=== PATIENT | male | born 1970 | race Caucasian/White ===

== ENCOUNTER 2016-05-16 12:56 | Day surgery (SDC) | payer OTHER ==
--- NOTE | 2016-05-15 13:46 | MH ---
cc: DICK MAYO M.D. DATE OF ADMISSION: 05/16/2016 REASON FOR ADMISSION Cardiac catheterization. HISTORY OF PRESENT ILLNESS The patient is a 45-year-old white male with a history of coronary artery disease and hyperlipidemia, who is now admitted for cardiac catheterization. Since last he has been having almost daily episodes of substernal chest discomfort, sometimes radiating to his arms bilaterally, occasionally associated with shortness of breath. He was evaluated in the hospital recently where cardiac enzymes were found to be negative for myocardial infarction. He was recommended close follow-up. He denies pleurisy, dizziness, syncope, near-syncope, palpitations, pedal edema, paroxysmal nocturnal dyspnea. The patient does state his symptoms are similar to his previous angina. PAST MEDICAL HISTORY 1. Hyperlipidemia. 2. Coronary artery disease, status post stent of the proximal LAD with a 2.75 mm Promus, and stent of the mid first obtuse marginal with a 2.25 mm Promus, stenting of the ostial to mid second obtuse marginal with a 2.25 mm Promus 11/18/2013. On 06/13/2015 he sustained an acute anterolateral ST elevation myocardial infarction associated with ventricular fibrillation arrest and underwent repeat stenting of the first obtuse marginal with a 2.5 mm Promus, and the LAD with a 3.0 mm Promus, and diagonal with a 2.25 mm Promus, in [place], [place]. MEDICATIONS His cardiac medications: 1. Aspirin 81 mg q. Daily. 2. Brilinta 90 mg b.i.d.. 3. Carvedilol 3.125 mg b.i.d. 4. Lipitor 40 mg q.h.s. 5. Ramipril 2.5 mg daily. ALLERGIES No known drug allergies. FAMILY HISTORY Noncontributory. SOCIAL HISTORY The patient is a current smoker. There is no history of alcohol abuse. REVIEW OF SYSTEMS As in the history of present illness, otherwise negative or noncontributory. PHYSICAL EXAMINATION VITAL SIGNS: On physical examination his blood pressure is 162/78 with a pulse of 55, respirations 15. GENERAL: In general he is a well-developed, well-nourished white male in no acute distress. HEENT/NECK: Jugular venous pressure is normal. Carotid pulses are 2+ bilaterally and without bruits. CHEST: Examination of the chest reveals clear lung hernandez. CARDIAC: On cardiac examination he has a regular rhythm and rate without S3, S4, or murmur. ABDOMEN: On abdominal examination he has a soft, nontender abdomen. Bowel sounds are present. There is no definite hepatosplenomegaly. EXTREMITIES: Examination of the extremities reveals no clubbing, cyanosis or edema. Peripheral pulses are normal throughout. IMPRESSION Recurrent, worsening angina in this 45-year-old white male with a fairly extensive history of coronary artery disease, status post numerous percutaneous coronary interventions, the last ones about one year ago. He most likely has re-stenosed one of his stents. I have recommended he undergo cardiac catheterization with possible percutaneous coronary intervention given the unstable nature of his symptoms. The risks of cardiac catheterization including but not limited to , myocardial infarction, stroke, arrhythmia, bleeding, infection and renal failure, have been outlined to the patient. He agrees to proceed. PLAN Cardiac catheterization on 05/16/2016. MD ARABELLA Herndon/FIOR /1:23 PM /1:37 PM RITA
[~2016-05-16] VITALS: Ht 172.7 cm; Wt 82.3 kg
[~2016-05-16 12:56] MED LIST: ASPI1TAB69 PO; BRIL90TA PO; CARV3.12 PO; LIPI40TA PO; RAMI1.252 PO
[2016-05-16 13:38] VITALS: BP 137/86; PULSE 61; RESP 18; TEMP 97.9; O2SAT 98
[2016-05-16] MEDS ORDERED: NS 1000P @30 MLS/HR (KVO) IV SCH (14:00)
[2016-05-16 14:16] LABS: AUTOMATED NEUTROPHIL # 5.7 TH/MM3 (1.8-7.7); BASOPHIL # 0.1 TH/MM3 (0-0.2); BASOPHIL % 0.7 % (0.0-2.0); EOSINOPHIL # 0.3 TH/MM3 (0-0.4); EOSINOPHIL % 3.1 % (0.0-4.0); HEMATOCRIT 48.3 % (39.0-51.0); HEMO FLAGS DIFF FINAL; LYMPH % 31.7 % (9.0-44.0); LYMPHOCYTE # 3.2 TH/MM3 (1.0-4.8); MEAN CELL VOLUME 87.1 FL (80.0-100.0); MEAN CORPUSCULAR HEMOGLOBIN 30.2 PG (27.0-34.0); MEAN CORPUSCULAR HGB CONC 34.7 % (32.0-36.0); MONO % 7.8 % (0.0-8.0); NEUT % 56.7 % (16.0-70.0); PLATELET COUNT 370 TH/MM3 (150-450); RED BLOOD COUNT 5.55 MIL/MM3 (4.50-5.90); RED CELL DISTRIBUTION WIDTH 13.7 % (11.6-17.2); WHITE BLOOD COUNT 10.1 TH/MM3 (4.0-11.0)
[2016-05-16] MEDS ORDERED: HEPARIN-NS/PF INJ 500 ML ONE (14:23)
[2016-05-16] MEDS ORDERED: MIDAZOLAM HCL 2 MG/2 ML VIAL ONE ×2 (14:24→15:12)
[2016-05-16 14:26] LABS: APTT (PATIENT) 27.9 SEC (24.3-30.1); INTERNATIONAL NORMALIZED RATIO 0.9 RATIO; PROTHROMBIN TIME - PATIENT 10.1 SEC (9.8-11.6)
[2016-05-16 14:36] LABS: BICARBONATE 28.4 MEQ/L (21.0-32.0); POTASSIUM 3.7 MEQ/L (3.5-5.1)
[2016-05-16] MEDS ORDERED: IOHEXOL 350 MG/ML 100 ML BTL (for Cath Lab) OTHER ONE (14:56)
[2016-05-16] MEDS ORDERED: IOHEXOL 350 MG/ML 50 ML BTL (for Cath Lab) OTHER ONE (14:56)
[2016-05-16] MEDS ORDERED: STERILE WATER FOR INJECTION 10 ML VIAL ONE (15:01)
[2016-05-16] MEDS ORDERED: BIVALIRUDIN 250 MG VIAL ONE (15:01)
[2016-05-16] MEDS ORDERED: TIROFIBAN INFUSION INJ 250 ML IV ONE (15:11)
[2016-05-16] MEDS ORDERED: HEPARIN SODIUM - IV 10,000 UNITS/10 ML VIAL ONE (15:11)
--- NOTE | 2016-05-16 16:20 | EKG ---
Date Performed: 05/16/2016 Time Performed: 13:44:32 PTAGE: 45 years EKG: Sinus rhythm Leftward axis Poor R wave progression - probable normal variant Borderline ECG NO SIGNIFICANT CHANGE FROM PRIOR ELECTROCARDIOGRAM. PREVIOUS TRACING : 05/11/2016 13.39 DOCTOR: Jun Siu Interpretating Date/Time 05/16/2016 16:19:28
[2016-05-16] MEDS ORDERED: SODIUM CHLOR 0.9% 1000 ML INJ 1,000 ML IV SCH (16:44)
[2016-05-16] MEDS ORDERED: MISC INFORMATION XX ONE (16:45)
[2016-05-16] MEDS ORDERED: LIDOCAINE HCL 1% 50 ML VIAL INFIL PRN (16:45)
[2016-05-16] MEDS ORDERED: LORazepam 2 MG/ML VIAL IV PRN (16:45)
[2016-05-16] MEDS ORDERED: TIROFIBAN INFUSION INJ 250 ML IV SCH (16:45)
[2016-05-16] MEDS ORDERED: ATROPINE SULFATE 1 MG/ML VIAL IV PRN (16:45)
[2016-05-16] MEDS ORDERED: ACETAMINOPHEN 325 MG TAB PO PRN (16:45)
[2016-05-16] MEDS ORDERED: SODIUM CHLORIDE 0.9% FLUSH 5 ML FLUSH IVF PRN (16:45)
[2016-05-16] MEDS ORDERED: SODIUM CHLOR 0.9% 250 ML INJ 250 ML IV PRN (16:45)
[2016-05-16] MEDS ORDERED: ONDANSETRON HCL 4 MG/2 ML VIAL IV PRN (16:45)
--- NOTE | 2016-05-16 16:58 | MA ---
cc: DICK MAYO M.D. DATE 05/16/2016 PROCEDURE Left heart catheterization, selective coronary angiography, left ventriculography, angioplasty and stent of the proximal LAD, angioplasty of the ostium of the second diagonal, angioplasty of the ostium of the second obtuse marginal. PROCEDURE NOTES The patient was brought to the Cardiac Catheterization Laboratory in a fasting state after having signed informed consent. The right groin was prepped and draped as per policy and anesthetized with 1% lidocaine. Arterial access was obtained via the right femoral artery and a 6 Guinean sheath placed. Coronary arteriography was performed using 6 [place] Tl left 4.0 to engage the LAD, 6 [place] Amplatz left 1.0 to engage the left circumflex, progressive right catheter for the right coronary. Left ventriculography was done using a standard 6 [place] pigtail. Percutaneous coronary intervention was done as described below. There were no apparent complications. HEMODYNAMIC DATA Left ventricle 112 with an end-diastolic pressure of 15. Aorta 112/65 with a mean of 82. There was no significant transvalvular aortic gradient on pullback of the pigtail catheter. CORONARY ARTERIOGRAPHY The left anterior descending and left circumflex have separate ostia. The left anterior descending demonstrates two probably overlapping stents in its proximal portion. The first diagonal, which appears to be a very small caliber vessel also demonstrates a stent from its ostium in the proximal portion. There is severe up to 95% restenosis of the LAD stents and diffuse up to 90% restenosis of the diagonal stent. The second diagonal has 50% ostial stenosis. The mid to distal LAD overall has mild diffuse luminal irregularities. The left circumflex is a relatively large vessel giving rise to a large first obtuse marginal and medium size second obtuse marginal. The first obtuse marginal has a stent in its mid portion and there if mild diffuse restenosis of the stent. The rest of the first obtuse marginal has mild diffuse luminal irregularities. There may be two overlapping stents encompassing the very proximal second obtuse marginal. There is severe restenosis of the proximal edge of these stents up to 90% severity. The mid to distal left circumflex appears to be angiographically normal. The right coronary artery is a small diffusely diseased vessel. There is likely up to 40% mid stenosis. LEFT VENTRICULOGRAPHY Contrast injection of the left ventricle reveals mild anterolateral hypokinesis. Ejection fraction is estimated at 50%. PERCUTANEOUS CORONARY INTERVENTION DESCRIPTION Aggrastat was given as per protocol. Adequate heparin was given during the procedure to achieve an ACT of 267 seconds. Using a 6 [place] XB 3.5 guiding catheter the ostium of the LAD was re-engaged. Using a 0.014 [place] guidewire the disease in the proximal LAD was crossed without difficulty and the tip of the wire positioned distally. Predilation was done using a 2.75 mm Euphora balloon catheter. At this point we decided to try to wire the small caliber first diagonal with a Runthrough wire. Despite several attempts we were unable to enter the ostium of this small diagonal. Stenting of the proximal LAD was then done with a 2.75 x 18 mm Resolute stent which was deployed at approximately 14 atmospheres for 30 seconds. Angiography at this point shows approximately 60% tubular stenosis just proximal to the stent. Despite multiple administrations of intracoronary nitroglycerine this lesion did not resolve so it was decided to place a 2.75 x 8 mm Resolute stent in this site. Despite administration of intracoronary nitroglycerine there also appears to be persistent up to 90% stenosis at the ostium of the second diagonal. The [place] guidewire was retracted and then placed in to the second diagonal. Multiple inflations were done at the ostium of this vessel using a 2.0 mm Euphora balloon catheter. Final angiography shows reduction of the initial proximal LAD stenosis to roughly 0% residual with no definite evidence for dissection or distal embolization. The second diagonal ostium has residual up to 60% stenosis. The guiding catheter was exchanged for a 6 [place] Amplatz left 1.0. The same P[place]ater guidewire was used to cross the disease at the ostium or near the ostium of the second obtuse marginal. Multiple inflations were done in this area using a noncompliant 2.75 mm Quantum Van Dyne balloon catheter. Final angiography shows reduction of the initial stenosis to roughly 50% residual with no evidence for dissection or distal embolization. It was decided not to place another stent at the true ostium of the second obtuse marginal as it was likely going to protrude in to the left circumflex lumen. The patient tolerated the procedures well. There were no apparent immediate complications. CONCLUSIONS 1. Separate origins of the left circumflex and LAD. 2. Status post repeat stenting of severe proximal LAD stent restenosis, status post angioplasty of the ostium of the second diagonal. 3. Status post angioplasty of severe stent restenosis near the ostium of the second obtuse marginal. 4. Low normal left ventricular systolic function with estimated ejection fraction of 50% with mild anterolateral hypokinesis. Dick Mayo MD GHRajat/KK /4:05 PM /4:15 PM MTDArvind
[2016-05-16 19:00] VITALS: BP 138/76; PULSE 58; RESP 18; TEMP 98; O2SAT 98
[2016-05-16] MEDS: MORPHINE SULFATE 4 MG/ML INJ IV PUSH PRN (20:56)
[2016-05-16] MEDS: SODIUM CHLORIDE 0.9% FLUSH 5 ML FLUSH IVF SCH (20:57)
[2016-05-16] MEDS: CARVEDILOL 3.125 MG TAB PO SCH (20:57)
[2016-05-16] MEDS ORDERED: ATORVASTATIN 40 MG TAB PO SCH (21:00)
[2016-05-16] MEDS ORDERED: TEMAZEPAM 15 MG CAP PO PRN (21:00)
[2016-05-16] MEDS ORDERED: TICAGRELOR 90 MG TAB PO SCH (21:00)
[2016-05-16 23:00] VITALS: BP 130/63; PULSE 66; PULSE 75; RESP 16; TEMP 98.2; O2SAT 98
[2016-05-17] VITALS (11 sets, daily range): BP systolic 120–134; BP diastolic 59–73; PULSE 54–92; RESP 16; TEMP 99.3–99.6; O2SAT 95–98
[2016-05-17] MEDS: MORPHINE SULFATE 4 MG/ML INJ IV PUSH PRN (03:18)
[2016-05-17 04:09] LABS: AUTOMATED NEUTROPHIL # 14.4 TH/MM3 (1.8-7.7); BASOPHIL # 0.1 TH/MM3 (0-0.2); BASOPHIL % 0.4 % (0.0-2.0); EOSINOPHIL # 0.2 TH/MM3 (0-0.4); EOSINOPHIL % 1.2 % (0.0-4.0); HEMATOCRIT 44.1 % (39.0-51.0); HEMO FLAGS DIFF FINAL; LYMPH % 12.2 % (9.0-44.0); LYMPHOCYTE # 2.1 TH/MM3 (1.0-4.8); MEAN CELL VOLUME 86.8 FL (80.0-100.0); MEAN CORPUSCULAR HEMOGLOBIN 30.1 PG (27.0-34.0); MEAN CORPUSCULAR HGB CONC 34.7 % (32.0-36.0); MONO % 4.6 % (0.0-8.0); NEUT % 81.6 % (16.0-70.0); PLATELET COUNT 366 TH/MM3 (150-450); RED BLOOD COUNT 5.08 MIL/MM3 (4.50-5.90); RED CELL DISTRIBUTION WIDTH 13.5 % (11.6-17.2); WHITE BLOOD COUNT 17.6 TH/MM3 (4.0-11.0)
[2016-05-17 04:35] LABS: BICARBONATE 23.6 MEQ/L (21.0-32.0); POTASSIUM 3.8 MEQ/L (3.5-5.1)
[2016-05-17] MEDS ORDERED: LEVA500T PO (08:34)
--- NOTE | 2016-05-17 08:45 | PD.CARD.PN ---
Subjective Subjective Remarks No abdominal, chest, or groin pain. No dyspnea, dizziness. Mild chills last night as well as sinus congestion, nonproductive cough. Objective Medications Item Value Date Time Aspirin 325 mg 11/17/13 0900 (Aspirin 325 Mg DAILY/PO 11/18/13 0611 Tab) Ticagrelor 90 mg 05/17/16 0900 (Brilinta) BID/PO Aspirin 81 mg 05/17/16 0900 (Ecotrin Ec) DAILY/PO Ramipril 1.25 mg 05/17/16 0900 (Altace) DAILY/PO Atorvastatin 40 mg 05/16/162099 Calcium HS/PO 05/16/162056 (Lipitor) Carvedilol 3.125 mg 05/16/162099 (Coreg) BID/PO 05/16/162056 Tirofiban/Sodium 250 ml @ 15.084 mls/hr 05/16/16 1645 Chloride [id number]/IV 05/17/16 0329 Vital Signs / I&O Vital Signs Date Time Temp Pulse Resp B/P Pulse Ox O2 Delivery O2 Flow Rate FiO2 05/17/16 07:45 99.6 89 16 120/59 95 05/17/16 06:00 89 05/17/16 05:00 55 05/17/16 04:00 88 05/17/16 03:00 91 05/17/16 03:00 99.3 54 16 134/73 98 05/17/16 02:00 91 05/17/16 01:00 90 05/17/16 00:00 69 05/16/16 23:00 98.2 66 16 130/63 98 05/16/16 23:00 75 05/16/16 19:00 98.0 58 18 138/76 98 05/16/16 13:38 97.9 61 18 137/86 98 I/O 05/16/16 05/16/16 05/16/16 05/17/16 05/17/16 05/17/16 07:00 15:00 23:00 07:00 15:00 23:00 Intake Total 460 ml Output Total 1000 ml Balance -540 ml Intake Oral 460 ml Output Urine Total 1000 ml # Bowel Movements 0 Physical Exam GENERAL: Well developed, well nourished. No acute distress. HEENT: Jugular venous pressure is normal. CHEST: Lungs clear to auscultation bilaterally. Unlabored respiratory effort. CARDIAC: Regular rate and rhythm without S3, S4, or murmur. ABDOMEN: Soft, nontender, no hepatosplenomegaly. Bowel sounds present. EXTREMITIES: No clubbing, cyanosis, or edema. Right groin nontender, no hematoma or tenderness. Laboratory Laboratory Tests Test 05/16/16 05/17/16 13:30 03:35 White Blood Count 10.1 TH/MM3 17.6 TH/MM3 Red Blood Count 5.55 MIL/MM3 5.08 MIL/MM3 Hemoglobin 16.8 GM/DL 15.3 GM/DL Hematocrit 48.3 % 44.1 % Mean Corpuscular Volume 87.1 FL 86.8 FL Mean Corpuscular Hemoglobin 30.2 PG 30.1 PG Mean Corpuscular Hemoglobin 34.7 % 34.7 % Concent Red Cell Distribution Width 13.7 % 13.5 % Platelet Count 370 TH/MM3 366 TH/MM3 Mean Platelet Volume 7.4 FL 7.5 FL Neutrophils (%) (Auto) 56.7 % 81.6 % Lymphocytes (%) (Auto) 31.7 % 12.2 % Monocytes (%) (Auto) 7.8 % 4.6 % Eosinophils (%) (Auto) 3.1 % 1.2 % Basophils (%) (Auto) 0.7 % 0.4 % Neutrophils # (Auto) 5.7 TH/MM3 14.4 TH/MM3 Lymphocytes # (Auto) 3.2 TH/MM3 2.1 TH/MM3 Monocytes # (Auto) 0.8 TH/MM3 0.8 TH/MM3 Eosinophils # (Auto) 0.3 TH/MM3 0.2 TH/MM3 Basophils # (Auto) 0.1 TH/MM3 0.1 TH/MM3 CBC Comment DIFF FINAL DIFF FINAL Differential Comment Prothrombin Time 10.1 SEC Prothromb Time International 0.9 RATIO Ratio Activated Partial 27.9 SEC Thromboplast Time Sodium Level 140 MEQ/L 138 MEQ/L Potassium Level 3.7 MEQ/L 3.8 MEQ/L Chloride Level 104 MEQ/L 105 MEQ/L Carbon Dioxide Level 28.4 MEQ/L 23.6 MEQ/L Anion Gap 8 MEQ/L 9 MEQ/L Blood Urea Nitrogen 10 MG/DL 14 MG/DL Creatinine 0.93 MG/DL 1.00 MG/DL Estimat Glomerular Filtration 88 ML/MIN 81 ML/MIN Rate Random Glucose 95 MG/DL 150 MG/DL Calcium Level 8.9 MG/DL 8.6 MG/DL Total Creatine Kinase 34 U/L Assessment and Plan Problem List: (1) CAD (coronary artery disease) Assessment and Plan: Stable overnight. No further angina s/p PCI's on LAD and left circumflex yesterday. Groin stable this morning. To discharge today, same home medications plus Levaquin as below. 3-4 week f/u with me, ad yani activity, cardiac diet. (2) Hyperlipidemia Assessment and Plan: Continues on statin therapy. Patient followed closely by his PCP. (3) Leukocytosis Assessment and Plan: WBC count increased to 17.6 this morning, possibly from viral syndrome, possibly sinusitis. Femoral arteriotomy site OK, abdominal exam benign. Will discharge patient on Levaquin 500 mg qd for 7 days. Code Status full code Discussed Condition With patient Problem Qualifiers (1) CAD (coronary artery disease): Qualified Code: I25.110 - Coronary artery disease involving [place] coronary artery of [place] heart with unstable angina pectoris (2) Hyperlipidemia: Qualified Code: E78.2 - Mixed hyperlipidemia (3) Leukocytosis: Qualified Code: D72.829 - Leukocytosis, unspecified type Eric Mccray MD May 17, 2016 08:44
[2016-05-17] MEDS: CARVEDILOL 3.125 MG TAB PO SCH (08:54)
[2016-05-17] MEDS: SODIUM CHLORIDE 0.9% FLUSH 5 ML FLUSH IVF SCH (08:55)
[2016-05-17] MEDS ORDERED: RAMIPRIL 1.25 MG CAP PO SCH (09:00)
[2016-05-17] MEDS ORDERED: ASPIRIN EC 81 MG TABEC PO SCH (09:00)
[2016-05-17] MEDS ORDERED: TICAGRELOR 90 MG TAB PO SCH (09:00)
== END 2016-05-17 11:11 | disposition home or self-care (01) ==
LOC: HDIC 12:56 → HDOC 12:56 → HCIN 18:37 → HDOC 05-17 11:11
PROVIDERS: ATTEND Internal Medicine Cardiovascular Disease
DX: I25.110 Atherosclerotic heart disease of native coronary artery with unstable angina pectoris (principal); E78.2 Mixed hyperlipidemia; D72.829 Elevated white blood cell count, unspecified; I25.2 Old myocardial infarction; F17.200 Nicotine dependence, unspecified, uncomplicated; Z79.82 Long term (current) use of aspirin
CPT/HCPCS: 80048; 82550; 85002; 85025; 85610; 85730; 92920; 92921; 92928; 93005; 93458; C1725; C1769; C1874; C1887; C1893; J1644; J2250; J2270; J3010; J3246; J7030; Q9967; 85347; J0583

== ENCOUNTER 2017-09-09 17:48 | Emergency (ER) | payer OTHER ==
[~2017-09-09] VITALS: Ht 172.7 cm; Wt 86.7 kg
[~2017-09-09 17:48] MED LIST changes: +LEVA500T PO
[2017-09-09 17:53] VITALS: BP 175/133; PULSE 89; RESP 18; TEMP 97.8; O2SAT 98
--- NOTE | 2017-09-09 18:51 | PD ---
HPI Chief Complaint: Numbness/Tingling Time Seen by Provider: 18:07 Travel History International Travel<30 days: No Contact w/Intl Traveler<30days: [place] Traveled to: [facility] Traveled to known affect area: No History of Present Illness HPI This patient complains of pain in the area of his left buttock which radiates down his leg. He has some pins and needles from the knee to the ankle on the top of his leg. It is not circumferential. He does not have motor weakness or urinary retention or incontinence. No acute injury. Duration of this is 10 days. He saw his orthopedist Dr. Whalen 3 days ago for the same thing. Physical therapy was set up for starting tomorrow. Patient seems a little disgruntled that no imaging was ordered. He would like an MRI. No fever. Symptom severity is moderate PFSH Past Medical History Hx Anticoagulant Therapy: Yes (BRILINTA) Blood Disorders: No Heart Rhythm Problems: No Cancer: No Cardiac Catheterization: Yes Cardiovascular Problems: Yes (HTN, CAD, STENTS) High Cholesterol: No Chemotherapy: No Chest Pain: Yes Congestive Heart Failure: No Diabetes: No Endocrine: No Genitourinary: No Hepatitis: No Hiatal Hernia: No Hypertension: Yes Musculoskeletal: No Neurologic: No Psychiatric: No Reproductive: No Respiratory: No Myocardial Infarction: Yes Radiation Therapy: No Thyroid Disease: No Tetanus Vaccination: Unknown Influenza Vaccination: No Past Surgical History Cardiac Surgery: Yes Other Surgery: Yes (back, ) Social History Alcohol Use: Yes (OCC) Tobacco Use: Yes (1PPD) Substance Use: No Allergies-Medications (Allergen,Severity, Reaction): Coded Allergies: hornet venom (Verified Allergy, Severe, 09/09/17) Reported Meds & Prescriptions Reported Meds & Active Scripts Active Reported Brilinta (Ticagrelor) 90 Mg Tab 90 Mg PO BID Lipitor (Atorvastatin Calcium) 40 Mg Tab 40 Mg PO HS Ramipril 1.25 Mg Cap 1.25 Mg PO DAILY Carvedilol 3.125 Mg Tab 3.125 Mg PO BID Review of Systems General / Constitutional: No: Fever Eyes: No: Blurred Vision HENT: No: Headaches Cardiovascular: No: Chest Pain or Discomfort Respiratory: No: Shortness of Breath Gastrointestinal: No: Abdominal Pain Physical Exam Narrative GENERAL: Well-nourished, well-developed patient in no apparent distress. SKIN: Focused skin assessment reveals no rash and nodules. Skin is Warm and dry. HEAD: Atraumatic. Normocephalic. EYES: Pupils equal and round. No scleral icterus. No injection or drainage. ENT: No nasal bleeding or discharge. Mucous membranes pink and moist. NECK: Trachea midline. No JVD. CARDIOVASCULAR: Regular rate and rhythm. No murmur appreciated. RESPIRATORY: No accessory muscle use. Clear to auscultation. Breath sounds equal bilaterally. GASTROINTESTINAL: Abdomen soft, non-tender, nondistended. Hepatic and splenic margins not palpable. MUSCULOSKELETAL: No obvious deformities. No clubbing. No cyanosis. No edema. NEUROLOGICAL: Awake and alert. No obvious cranial nerve deficits. Motor grossly within normal limits. Normal speech. PSYCHIATRIC: Appropriate mood and affect; insight and judgment normal. Data Data Last Documented VS Vital Signs Date Time Temp Pulse Resp B/P (MAP) Pulse Ox O2 Delivery O2 Flow Rate FiO2 09/09/17 17:53 97.8 89 18 175/133 (147) 98 MDM Medical Decision Making Medical Screen Exam Complete: Yes Emergency Medical Condition: Yes Medical Record Reviewed: Yes Differential Diagnosis Sciatica, paresthesia, low back pain Narrative Course I have reviewed the patient's electronic medical record. Patient is neurologically intact. No red flags to suggest emergent imaging is indicated. He reports subjective paresthesia but there is no sensory loss or motor weakness or myelopathy Patient wants an MRI. I decided I would order an outpatient MRI and have it sent to his orthopedist. He agreed. However, he decided to not wait until I had time to do the paperwork for the MRI order and he left. Diagnosis Primary Impression: Sciatica of left side Additional Instructions: The patient was advised to follow up with their physician and return if they worsen. Med/Other Pt SpecificInfo: Other Disposition: 01 DISCHARGE HOME Condition: Stable Jona Lee MD Sep 09, 2017 18:51
== END 2017-09-09 18:37 | disposition left against medical advice (07) ==
LOC: PHED 17:48
DX: M54.32 Sciatica, left side (principal); I10 Essential (primary) hypertension; I25.10 Atherosclerotic heart disease of native coronary artery without angina pectoris; I25.2 Old myocardial infarction; F17.200 Nicotine dependence, unspecified, uncomplicated
CPT/HCPCS: 99281

== ENCOUNTER 2017-11-05 10:10 | Day surgery (SDC) | payer OTHER ==
[~2017-11-05] VITALS: Ht 172.7 cm; Wt 84.4 kg
[~2017-11-05 10:10] MED LIST changes: -ASPI1TAB69 PO; -LEVA500T PO
[2017-11-05] MEDS ORDERED: POVIDONE IODINE 5% (ANTISEPSIS KIT) 4 APPLICATIONS EACH NARE PRN (10:45)
[2017-11-05] MEDS ORDERED: SODIUM CHLORID 0.9% 500 ML IV PRN (10:45)
[2017-11-05] MEDS ORDERED: LACTATED RINGER'S 1000 ML IV PRN (10:45)
[2017-11-05] MEDS ORDERED: CHLORHEXIDINE GLUCONATE 4% SOLN 120 ML BTL TOPICAL SCH (10:45)
[2017-11-05] MEDS ORDERED: ceFAZolin 2 GM PREMIX 50 ML IV SCH (10:45)
[2017-11-05] MEDS ORDERED: METOPROLOL TARTRATE 25 MG TAB PO PRN (10:45)
[2017-11-05] MEDS ORDERED: CHLORHEXIDINE GLUCONATE 2 % 1 PACK (2 CLOTHS) TOPICAL PRN (10:45)
[2017-11-05] MEDS ORDERED: TRAM50TA PO (10:46)
[2017-11-05] MEDS ORDERED: GABA400C5 PO (10:46)
[2017-11-05] MEDS ORDERED: PROPOFOL 200 MG/20 ML AMP IV ONE (12:00)
[2017-11-05] MEDS ORDERED: DEXAMETHASONE SOD PHOS 4 MG/ML VIAL IV ONE (12:00)
[2017-11-05] MEDS ORDERED: ONDANSETRON HCL 4 MG/2 ML VIAL IV ONE (12:00)
[2017-11-05] MEDS ORDERED: ePHEDrine/NS 25 MG/5 ML SYRINGE IV ONE (12:00)
[2017-11-05] MEDS ORDERED: GLYCOPYRROLATE 1 MG/5 ML SYRINGE IV PUSH ONE (12:00)
[2017-11-05] MEDS ORDERED: ROCURONIUM INJ 50 MG/5 ML SYRINGE IV PUSH ONE (12:00)
[2017-11-05] MEDS ORDERED: KETOROLAC TROMETHAMINE 30 MG/ML (IVP) VIAL IV PUSH ONE (12:00)
[2017-11-05] MEDS ORDERED: ceFAZolin INJ 1,000 MG VIAL IV ONE (12:00)
[2017-11-05] MEDS ORDERED: PHENYLEPH/NS 1000 MCG/10 ML SYR IV ONE (12:00)
[2017-11-05] MEDS ORDERED: LIDOCAINE HCL 1% PF 5 ML SYRINGE OTHER ONE (12:00)
[2017-11-05] MEDS ORDERED: ACETAMINOPHEN 1000 MG/100 ML 100 ML IV ONE (13:38)
[2017-11-05] MEDS ORDERED: GELATIN 12 MM/7 MM FOAM ONE (14:08)
[2017-11-05] MEDS ORDERED: BETAMETHASONE SOD PHOS/ACETATE SUSP 30 MG/5 ML VIAL ONE (14:08)
[2017-11-05] MEDS ORDERED: GENTAMICIN SULFATE 80 MG/2 ML VIAL ONE (14:08)
[2017-11-05] MEDS ORDERED: BUPIVACAINE/EPINEPHRINE 0.5% PF 30 ML VIAL ONE ×2 (14:09→17:19)
--- NOTE | 2017-11-05 17:34 | PD.OP ---
cc: Charles Whalen. Operative Report Date of Surgery: Nov 05, 2017 Preoperative Diagnosis: Herniated nucleus pulposus L3-4, left, extruded. Herniated nucleus pulposus L4-5, left, small. Left lumbosacral radiculopathy. History of lumbar laminectomy L4-5 Postoperative Diagnosis: Same Procedure: Lumbar laminectomy from the left L3, L4, partial bilateral with lateral recess decompression and resection herniated nucleus pulposus. Revision lumbar laminectomy from the left L4, L5 with lateral recess decompression and exploration of the disc space. Use of dilation port and microscope Anesthesia: General Surgeon: Charles Whalen Brick Veneer Maker(s): CATHERINE Rico Operation and Findings: EBL: 100 cc INDICATION: This patient is a 47-year-old male who approximately 7 years ago came to lumbar laminectomy at L4-5 for herniated disc extending to the right. The patient did well. He is developed progressive left leg pain and investigative studies shows evidence of a large sequestered disc herniation extending below the disc space at L3-4 almost down to the L4-5 level and underneath the exiting left L4 nerve root. In addition, there is a small disc herniation to the left extending below the disc space at L4-5. He presents with radiating left leg pain. He presents for lumbar laminectomy at L3-4 and revision laminectomy at L4-5 NOTE: Briseida Rico PA-C was present for the entire surgical procedure as my engineer first assistant. In my medical opinion her skill and care was necessary for the proper management of this patient. PROCEDURE: The patient was brought to the operating room and anesthetized in the supine position. The patient was rolled to a prone position on a Shemar frame on a Marcio table. All pressure points were protected in the back was scrubbed with alcohol followed by Hibiclens followed by ChloraPrep and draped sterilely. A timeout was done and antibiotics were given. AP and lateral radiographic images were used to identify the proper levels and perform skin markings. We started from the left side at the L4-5 level. A paramedian incision was made and an off-midline fascial incision was made. A dilating system was placed down to the interlaminar space and held provisionally to the side of the table. The microscope was brought into the field. A high-speed bur under the microscope was used to perform a partial bilateral laminectomy from that side. A lateral recess decompression on the left side was accomplished using straight and angled Kerrison punches. A partial medial facetectomy was accomplished. The crossing and exiting nerve roots were completely decompressed. We extended below the disc space. Underneath L4 nerve root and extending around the edge of the pedicle was a sequestered disc herniation extending in the area underneath the elevated posterior longitudinal ligament. We had complete decompression. We were concerned and extended the laminectomy down to the L4-5 disc space. We were able to explore down to the disc space exploring the L5 nerve root going across the disc space as well as L4 nerve root from below. We could not find any additional disc fragments below the L4 nerve root in the region of the foramen. There was some bulging of the annulus to the left of midline at L4-5. After the lateral recess decompression, there was not felt to be any significant nerve root compromise and we did not feel that an annulotomy would be of benefit for this patient. We checked above the L4 nerve root again to ensure there was no evidence of nerve root compromise and it felt that the decompression was very satisfactory. There was some significant scarring along the edge of the nerve root. Explored into the disc space at L3-4 there were no additional disc fragments that were noted The wound was irrigated copiously. A small piece of Gelfoam with Celestone was placed into the epidural space. Hemostasis was controlled. The deep fascia was approximated with interrupted 0 Vicryl suture subcutaneous suture with 2-0 Vicryl suture and skin with running intradermal 3-0 Vicryl followed by Dermabond. A field block with local anesthesia was utilized. A sterile dressing was applied. The sponge count and needle counts and instrument counts were all correct. The patient tolerated the procedure well as taken to the recovery room in satisfactory condition. FINDINGS: There was evidence of a sequestered disc herniation from L3-4 creating significant L4 nerve root compromise. Some bulging the distal left at the L4-5 level was seen was felt to be a relatively negative disc space exploration and no decompression of the disc at that level was felt to be necessary. Charles Whalen MD Nov 05, 2017 17:34
[2017-11-05] MEDS ORDERED: HYDR-3288 PO (17:39)
[2017-11-05] MEDS ORDERED: DO NOT ADM ANY ANTICOAGULANT DRUGS PRN (18:00)
[2017-11-05] MEDS ORDERED: MIDAZOLAM HCL 2 MG/2 ML VIAL ONE (18:02)
[2017-11-05 18:55] VITALS: BP 156/80; PULSE 70; RESP 16; TEMP 97.7; O2SAT 98
[2017-11-05] MEDS ORDERED: ACETAMINOPHEN/HYDROcodone 325 MG/7.5 MG TAB ONE (19:06)
--- NOTE | 2017-11-05 21:17 | RADRPT ---
EXAM DATE: 11/05/2017 9:14 PM EDT AGE/SEX: 47 years / Male INDICATIONS: L3-L4 Laminectomy. Revision laminectomy of L4-L5. CLINICAL DATA: This is the patient's initial encounter. Patient reports that signs and symptoms have been present for 1 day and indicates a pain score of Nonresponsive. MEDICAL/SURGICAL HISTORY: Non-responsive. Non-responsive. COMPARISON: [facility] [place], SPINE LUMBAR LATERAL ONLY, 10/31/2010. . FINDINGS: Single lateral view of the lumbar spine demonstrate level localization at the L3-4 disc level CONCLUSION: Localization hardware pointing at the L3-4 disc level. Electronically signed by: Eugenio Crandall MD 11/05/2017 9:16 PM EDT
== END 2017-11-05 19:15 | disposition home or self-care (01) ==
LOC: HSDC 10:10
PROVIDERS: ATTEND Orthopaedic Surgery Orthopaedic Surgery of the Spine
DX: M51.16 Intervertebral disc disorders with radiculopathy, lumbar region (principal); I10 Essential (primary) hypertension; E78.5 Hyperlipidemia, unspecified; Z01.812 Encounter for preprocedural laboratory examination
CPT/HCPCS: 00630; 63030; 63042; 72020; 76000; 85610; 85730; J0131; J0690; J0702; J1580; J2250; J3010; J7120; J1100; J1885; J2370; J2405